=== PATIENT | female | born 1940 | race Caucasian/White ===

== ENCOUNTER 2018-08-22 15:27 | Inpatient (IN) | payer MEDICARE ==
[2018-08-22] MEDS ORDERED: Acetaminophen 325 MG TAB ONE (17:15)
[2018-08-22 18:35] VITALS: BMI 26.1
[2018-08-22] MEDS ORDERED: Acetaminophen 325 MG TAB PO PRN (19:05)
[2018-08-22] MEDS ORDERED: Ondansetron PF 4 MG/2 ML Vial IVP PRN (19:05)
[2018-08-22] MEDS ORDERED: Ondansetron ODT 4 MG TAB SL PRN (19:05)
[2018-08-23] MEDS ORDERED: Zolpidem Tartrate 5 MG TAB PO PRN (00:45)
[2018-08-23] MEDS ORDERED: HYDROcodone/Acetaminophen 5/325 mg Tablet PO PRN (00:45)
--- NOTE | 2018-08-23 01:13 | PDOC.EVN ---
Event Note - Event Note Event Note: H&P [id number]
[2018-08-23 07:32] LABS: #Eosinphils 0.1 thou/uL (0.0-0.7); #Lymphocytes 1.2 thou/uL (1.20-3.40); #Monocytes 0.5 thou/uL (0.11-0.59); #Neutrophils 3.1 thou/uL (1.40-6.50); %Basophils 0.1 % (0.0-1.0); %Eosinophils 2.9 % (0.0-10.0); %Lymphocytes 24.4 % (21.0-51.0); %Monocytes 10.3 % (0.0-10.0); %Neutrophils 62.2 % (42.0-75.0); Mean Corpuscular HGB CONC 34.3 g/dL (32.0-36.0); Mean Corpuscular Hemoglobin 31.8 pg (27.0-31.0); Mean Corpuscular Volume 92.8 fL (78.0-98.0); Mean Platelet Volume 7.8 fL (7.4-10.4); Platelet Count 190 thou/uL (130-400); RBC Distribution Width 11.9 % (11.5-14.5); Red Blood Cell (RBC) Count 4.73 mill/uL (4.20-5.40); White Blood Cell (WBC) Count 4.9 thou/uL (4.8-10.8)
[2018-08-23 07:39] LABS: PTT 29.4 SEC (22.9-36.1); Prothrombin Time 13.7 SEC (12.0-14.7)
[2018-08-23 07:54] LABS: Anion Gap 14 mmol/L (10-20); BUN (Urea Nitrogen) 11 mg/dL (9.8-20.1); Calc. Creatinine Clearance 60 mL/min (70-130); Calcium 9.7 mg/dL (7.8-10.44); Carbon Dioxide 24 mmol/L (23-31); Chloride 107 mmol/L (98-107); Estimated GFR-MDRD 72; Glucose 98 mg/dL (83-110); Potassium 3.8 mmol/L (3.5-5.1); Sodium 141 mmol/L (136-145)
[2018-08-23] MEDS: Aspirin 81 mg Enteric Coated Tablet PO SCH (09:13)
[2018-08-23] MEDS: Enoxaparin Sodium 40 MG/0.4 ML SYRINGE SC SCH (09:15)
[2018-08-23] MEDS: Acetaminophen 325 MG TAB PO PRN ×2 (10:09→21:02)
--- NOTE | 2018-08-23 11:18 | CON ---
DATE OF CONSULTATION: 08/23/2018 CONSULTING PHYSICIAN: Hospitalist Service. IMPRESSION: Probable right occipital infarct. PLAN: 1. Aspirin. 2. Lipitor. 3. Echocardiogram. 4. MRI of the brain. HISTORY OF PRESENT ILLNESS: Ms. English is a previously healthy 78-year-old woman, who came in with complaints of acute onset of distorted vision and headache. She initially tried to sleep for the symptoms, by the next morning when she got up, she found that she was staggering. She also noted some numbness in the left side of the body. She went to [facility]. She had a CT and CTA done. The reports are not available. She was transferred here for further evaluation. She denies any history of stroke symptoms in the past or cardiac disease. She has no other risk factors. PAST MEDICAL HISTORY: Otherwise, negative. ALLERGIES: KEFLEX, SULFA, AND CODEINE. SOCIAL HISTORY: No tobacco or alcohol use. FAMILY HISTORY: Noncontributory. MEDICATION LIST: None. REVIEW OF SYSTEMS: Ten system review of systems is otherwise negative. PHYSICAL EXAMINATION: GENERAL: She is a healthy-appearing elderly lady, in no acute distress. VITAL SIGNS: Blood pressure 178/111, pulse 80, respirations 16, and temperature 98.1. HEENT: Pupils are equal and reactive. Conjunctivae are clear. Oropharynx clear. NECK: Supple. No lymphadenopathy. EXTREMITIES: No cyanosis, clubbing, or edema. NEUROLOGIC: She is alert and appropriate. Her speech is fluent and clear. Cranial nerves are intact other than a dense left homonymous field cut. Motor exam showed good strength bilaterally. Sensation was subjectively decreased in the left arm and foot. No tremor. Dysmetria is present. Gait was not tested. Plantar responses were downgoing bilaterally. LABORATORY STUDIES: Unremarkable CBC, coags, and chemistry panel. EKG, normal sinus rhythm. SUMMARY: Elderly lady with probable undiagnosed hypertension and presents with visual field deficit and numbness consistent with posterior circulation stroke. I agree with your care and follow up on the results. Job ID: [id number]
--- NOTE | 2018-08-23 12:41 | MRI ---
MRI BRAIN: DATE: 08/23/2018. PROVIDED CLINICAL HISTORY: Blurred vision and left-sided weakness. FINDINGS: Correlation is made with the CT examination performed 08/22/2018. The ventricular system appears normal in size and morphology. There is no evidence for intracranial hemorrhage or mass effect. There is gyriform restricted diffusion present involving the distribution of the right posterior cerebral artery involving the right occipital region. There is a punctate fo cus of restricted diffusion seen involving the right thalamus. No additional diffusion restriction i s evident. Appropriate flow voids are seen within the major intracranial vessels with the exception of a diminis hed/absent flow voids involving the right posterior cerebral artery involving the P1 segment. The extracranial soft tissues and calvarial marrow signal appear normal. IMPRESSION: 1. Findings compatible with recent posterior cerebral artery distribution infarction on the right. 2. Lacunar infarction involving the right thalamus. POS: BHAVESH
--- NOTE | 2018-08-23 13:54 | PDOC.PN ---
- Subjective Encounter Start Date: 08/23/18 Encounter Start Time: 07:00 Pt seen for followup re: ischemic CVA. Denies chest pain, shortness of breath, fevers or chills. - Objective Vital Signs & Weight: Vital Signs (12 hours) Temp Pulse Resp BP BP Pulse Ox 08/23/18 11:53 98.1 F 86 16 183/96 H 96 08/23/18 09:17 86 158/88 H 08/23/18 07:48 98.1 F 81 16 178/111 H 97 08/23/18 04:00 98.2 F 77 16 130/93 H 98 Weight Weight 138 lb 6 oz I&O: 08/22/18 08/23/18 08/24/18 06:59 06:59 06:59 Intake Total 150 Balance 150 Result Diagrams: 08/23/18 07:23 08/23/18 07:23 Phys Exam - Physical Examination Constitutional: NAD HEENT: moist MMs, sclera anicteric, oral pharynx no lesions, 2+ tonsils Neck: no nodes, no JVD, supple, full ROM Respiratory: clear to auscultation bilateral Cardiovascular: RRR, no rub S1, S2 Gastrointestinal: soft, non-tender, no distention, positive bowel sounds Neurological: moves all 4 limbs L dense hemianopsia Psychiatric: normal affect, A&O x 3 Dx/Plan (1) Ischemic cerebrovascular accident (CVA) Code(s): I63.9 - CEREBRAL INFARCTION, UNSPECIFIED Status: Acute Comment: continue aspirin, statin (2) Hemianopia, homonymous, left Code(s): H53.462 - HOMONYMOUS BILATERAL FIELD DEFECTS, LEFT SIDE Status: Acute Comment: await MRI (3) Carotid artery aneurysm Code(s): I72.0 - ANEURYSM OF CAROTID ARTERY Status: Acute Comment: consult CV surgery (4) HTN (hypertension) Code(s): I10 - ESSENTIAL (PRIMARY) HYPERTENSION Status: Chronic - Plan * . Review of Systems - Review of Systems Constitutional: negative: fever, chills, sweats, weakness, malaise Eyes: Vision Change Respiratory: negative: Cough, Shortness of Breath, SOB with Excertion, Pleuritic Pain, Wheezing Cardiovascular: negative: chest pain, palpitations, orthopnea, paroxysmal nocturnal dyspnea, edema, light headedness Gastrointestinal: negative: Nausea, Vomiting, Abdominal Pain, Diarrhea, Constipation, Melena, Hematochezia Genitourinary: negative: Dysuria, Frequency, Incontinence, Hematuria, Retention Neurological: Numbness (Vision change), Other - Medications/Allergies Allergies/Adverse Reactions: Allergies Allergy/AdvReac Type Severity Reaction Status Date / Time cephalexin [From Keflex] Allergy Verified 08/22/18 20:25 Sulfa (Sulfonamide Allergy Verified 08/22/18 20:25 Antibiotics) codeine AdvReac Verified 08/22/18 20:25 Medications: Current Medications Acetaminophen (Tylenol) 650 mg PO Q6H PRN PRN Reason: Moderate to Severe Pain (6-10) Last Admin: 08/23/18 10:09 Dose: 650 mg Hydrocodone Bitart/Acetaminophen ([place] 5/325) 1 tab PO Q4H PRN PRN Reason: Moderate Pain (4-6) Aspirin (Ecotrin) 81 mg PO DAILY [facility] Last Admin: 08/23/18 09:13 Dose: 81 mg Atorvastatin Calcium (Lipitor) 40 mg PO HS [facility] Enoxaparin Sodium (Lovenox) 40 mg SC 0900 [facility] Last Admin: 08/23/18 09:15 Dose: 40 mg Zolpidem Tartrate (Ambien) 5 mg PO HSPRN PRN PRN Reason: Insomnia
[2018-08-23] MEDS: Atorvastatin Calcium 40 MG TAB PO SCH (20:08)
[2018-08-24 06:43] LABS: Cardiac Risk 4.1 (Less than 4.5)
[2018-08-24] MEDS: Aspirin 81 mg Enteric Coated Tablet PO SCH (08:53)
[2018-08-24] MEDS: Enoxaparin Sodium 40 MG/0.4 ML SYRINGE SC SCH (08:56)
--- NOTE | 2018-08-24 14:06 | PDOC.PN ---
- Subjective Encounter Start Date: 08/24/18 Encounter Start Time: 07:00 Pt seen for followup re: ischemic CVA. Says she feels better. - Objective MAR Reviewed: Yes Vital Signs & Weight: Vital Signs (12 hours) Temp Pulse Resp BP Pulse Ox 08/24/18 11:52 98.6 F 96 16 147/91 H 100 08/24/18 08:56 99 08/24/18 07:41 98.2 F 80 16 146/86 H 99 08/24/18 04:57 96 08/24/18 03:02 98.4 F 82 20 142/89 H 96 Weight Weight 138 lb 1.6 oz I&O: 08/23/18 08/24/18 08/25/18 06:59 06:59 06:59 Intake Total 150 950 Balance 150 950 Result Diagrams: 08/23/18 07:23 08/23/18 07:23 EKG Reviewed by me: Yes (Tele: NSR) Phys Exam - Physical Examination Constitutional: NAD HEENT: moist MMs Neck: supple Respiratory: clear to auscultation bilateral Cardiovascular: RRR Gastrointestinal: soft Neurological: moves all 4 limbs Psychiatric: normal affect Dx/Plan (1) Ischemic cerebrovascular accident (CVA) Code(s): I63.9 - CEREBRAL INFARCTION, UNSPECIFIED Status: Acute Comment: continue aspirin, statin; Inpatient Rehab vs SNU (2) Hemianopia, homonymous, left Code(s): H53.462 - HOMONYMOUS BILATERAL FIELD DEFECTS, LEFT SIDE Status: Acute Comment: ischemic CVA on MRI (3) Carotid artery aneurysm Code(s): I72.0 - ANEURYSM OF CAROTID ARTERY Status: Acute Comment: CV surgery consulted (4) HTN (hypertension) Code(s): I10 - ESSENTIAL (PRIMARY) HYPERTENSION Status: Chronic - Plan plan discussed w/ family, PT/OT, out of bed/ambulate * . Review of Systems - Review of Systems Eyes: Vision Change Respiratory: negative: Cough, Shortness of Breath, SOB with Excertion, Pleuritic Pain, Wheezing Cardiovascular: negative: chest pain, palpitations, orthopnea, paroxysmal nocturnal dyspnea, edema, light headedness Neurological: Numbness (vision change), Other - Medications/Allergies Allergies/Adverse Reactions: Allergies Allergy/AdvReac Type Severity Reaction Status Date / Time cephalexin [From Keflex] Allergy Verified 08/22/18 20:25 Sulfa (Sulfonamide Allergy Verified 08/22/18 20:25 Antibiotics) codeine AdvReac Verified 08/22/18 20:25 Medications: Current Medications Acetaminophen (Tylenol) 650 mg PO Q6H PRN PRN Reason: Moderate to Severe Pain (6-10) Last Admin: 08/23/18 21:02 Dose: 650 mg Hydrocodone Bitart/Acetaminophen ([place] 5/325) 1 tab PO Q4H PRN PRN Reason: Moderate Pain (4-6) Aspirin (Ecotrin) 81 mg PO DAILY [facility] Last Admin: 08/24/18 08:53 Dose: 81 mg Atorvastatin Calcium (Lipitor) 40 mg PO HS [facility] Last Admin: 08/23/18 20:08 Dose: 40 mg Enoxaparin Sodium (Lovenox) 40 mg SC 0900 [facility] Last Admin: 08/24/18 08:56 Dose: 40 mg Zolpidem Tartrate (Ambien) 5 mg PO HSPRN PRN PRN Reason: Insomnia
--- NOTE | 2018-08-24 14:28 | CON ---
DATE OF CONSULTATION: HISTORY OF PRESENT ILLNESS: Ms. English is a 78-year-old woman, who was admitted with a stroke. She was apparently seen in [place] and had a radiologic workup, which is unavailable. We will have to redo her films to characterize what has been described as a carotid artery aneurysm. She has been seen by Dr. Perez. She has no previous history of any stroke symptoms or prior cardiovascular disease. PAST MEDICAL HISTORY: Dyslipidemia. PAST SURGICAL HISTORY: None. ALLERGIES: KEFLEX, SULFA, AND CODEINE. MEDICATIONS: Prior to admission, none. SOCIAL HISTORY: She has not used tobacco. PHYSICAL EXAMINATION: GENERAL: This is a well-developed, well-nourished woman, resting comfortably in bed. VITAL SIGNS: Her height is 5 feet 1 inch, weight is 138 pounds, BSA is 1.64, temperature 98.2, pulse is 80 and regular, blood pressure 146/86. NECK: Supple without bruit. CHEST: Clear bilaterally. HEART: Rhythm is regular. ABDOMEN: Soft and nontender. NEUROLOGIC: Motor exam is equal bilaterally. She has a left homonymous hemianopia. ASSESSMENT AND PLAN: Cerebrovascular accident. She has had a MRI of her brain performed, which has shown a posterior territory infarct on the right. She also has a lacunar infarction involving the thalamus on the right. She needs a CT angiogram of the neck to evaluate her extracranial carotid circulation. She has had an echocardiogram performed, which showed significant valvular disease. She has no ASD or PFO. Her EF is 60%. I will follow up on her CT angio. Job ID: [id number]
[2018-08-24] MEDS: Acetaminophen 325 MG TAB PO PRN (15:57)
[2018-08-24] MEDS: Atorvastatin Calcium 40 MG TAB PO SCH (20:25)
--- NOTE | 2018-08-25 07:37 | HP ---
CHIEF COMPLAINT: Left eye blindness. HISTORY OF PRESENT ILLNESS: This is a 78-year-old female with unknown past medical history as this is the first time she has encountered a physician in the outside ER. The patient apparently last night was having left visual disturbances. The left eye vision went blurry and then she became blind in the left eye. The patient went to an outside ER and had a CT scan done at the facility, which showed an extracranial carotid aneurysm as well as CVA to the visual cortex. The patient was given aspirin at the other hospital with cholesterol medications as well. Not a candidate for tPA as the onset was greater than 8 hours and the patient presented to the ER here. The patient currently at point in time of evaluation, states that she has also developed left arm numbness and left leg numbness. The patient has never had these symptoms before. Denies any alleviating or aggravating factors. Denies any other associated complaints or symptoms. The patient seen and examined in the room. Family at bedside. All questions were answered. ALLERGIES: TO KEFLEX. SHE IS NOT SURE WHAT HAPPENS WHEN SHE GETS KEFLEX. PAST MEDICAL HISTORY: Unknown. SOCIAL HISTORY: Nondrinker, nonsmoker. HOME MEDICATIONS: None. FAMILY HISTORY: The patient is unaware of any. REVIEW OF SYSTEMS: All systems reviewed, pertinent positive in HPI, otherwise negative. PHYSICAL EXAMINATION: VITAL SIGNS: Blood pressure 141/86, temperature of 98, pulse of 81, respirations of 16 with saturations of 97% on room air. GENERAL: The patient is lying in bed comfortably. No acute distress. HEENT: PERRLA. Extraocular muscles intact. Left vision not intact. The patient unable to see, blurry, not tracking very well either on the left eye. NECK: Supple, mobile, nontender thyroid appreciated. PULMONARY: Regular respiratory rate. No cyanosis, clubbing, or edema noted. CARDIOVASCULAR: Regular rate and rhythm. S1, S2. No murmurs, rubs, or gallops appreciated. ABDOMEN: Positive bowel sounds. Soft, nontender, and nondistended. EXTREMITIES: 2+ peripheral pulses. No cyanosis, clubbing, or edema. NEUROLOGIC: Cranial nerves 2 through 12 intact except for left optic nerve. Left upper extremity, shoulder abduction and abduction 3/5, elbow flexion 3/5. Left lower extremity hip flexion 4/5. LABORATORY DATA: CBC reviewed. BMP reviewed. ASSESSMENT: 1. Likely a posterior cerebrovascular accident. 2. Hypertension. 3. Left-sided weakness. PLAN: At this point in time, we will admit the patient to Internal Medicine Team given CT findings. We will consult Neurosurgery, likely not a surgical candidate. However, given that we have basic local neurosurgeons available to get an evaluation. We will also consult Neurology, we were likely to do something in this situation. Consult to Physical Therapy as well as starting the patient on aspirin, atorvastatin, and Lovenox for DVT prophylaxis. The patient wishes to remain a full code. Case and plan discussed with the patient and daughter at length. They understand and agreed with this plan. Depending on MRI results, the patient may need to be switched to inpatient status, was admitted under observation at point in time of admission. Job ID: [id number]
--- NOTE | 2018-08-25 08:45 | CON ---
DATE OF CONSULTATION: 08/24/2018 ADDENDUM: I had the opportunity to review the CT angiogram performed in [place]. There is no obstructive carotid artery disease. She has no aneurysm of the carotid artery. She has a very tortuous internal carotid artery system making 3 hairpin turns bilaterally prior to entering the base of the skull. There is no surgical intervention needed. Job ID: [id number]
[2018-08-25] MEDS: Enoxaparin Sodium 40 MG/0.4 ML SYRINGE SC SCH (08:48)
[2018-08-25] MEDS: Aspirin 81 mg Enteric Coated Tablet PO SCH (08:48)
--- NOTE | 2018-08-25 14:12 | PDOC.PN ---
- Subjective Encounter Start Date: 08/25/18 Encounter Start Time: 07:20 Pt seen for followup re: CVA. Feels well, no new complaints. - Objective MAR Reviewed: Yes Vital Signs & Weight: Vital Signs (12 hours) Temp Pulse Pulse Pulse Resp BP BP 08/25/18 12:00 98.2 F 87 18 08/25/18 09:05 79 87 145/84 H 120/91 H 08/25/18 07:55 08/25/18 07:51 98.0 F 86 16 08/25/18 04:24 97.8 F 79 16 BP Pulse Ox 08/25/18 12:00 131/100 H 98 08/25/18 09:05 08/25/18 07:55 100 08/25/18 07:51 133/81 100 08/25/18 04:24 139/85 99 Weight Weight 138 lb 1.6 oz I&O: 08/24/18 08/25/18 08/26/18 06:59 06:59 06:59 Intake Total 950 750 Balance 950 750 Result Diagrams: 08/23/18 07:23 08/23/18 07:23 EKG Reviewed by me: Yes (Tele: NSR) Phys Exam - Physical Examination Constitutional: NAD HEENT: moist MMs Neck: supple Respiratory: clear to auscultation bilateral Cardiovascular: RRR Gastrointestinal: soft Neurological: moves all 4 limbs L homonymous hemianopsia Psychiatric: normal affect Dx/Plan (1) Ischemic cerebrovascular accident (CVA) Code(s): I63.9 - CEREBRAL INFARCTION, UNSPECIFIED Status: Acute Comment: will continue aspirin, statin; Discharge planning in progress re: Inpatient Rehab vs SNU (2) Hemianopia, homonymous, left Code(s): H53.462 - HOMONYMOUS BILATERAL FIELD DEFECTS, LEFT SIDE Status: Acute Comment: secondary to ischemic CVA (3) HTN (hypertension) Code(s): I10 - ESSENTIAL (PRIMARY) HYPERTENSION Status: Chronic Comment: monitor vital signs, titrate antihypertensives as needed (4) Carotid artery aneurysm Code(s): I72.0 - ANEURYSM OF CAROTID ARTERY Status: Resolved Comment: appreciate CV surgery input - Plan * . Review of Systems - Review of Systems Respiratory: negative: Cough, Shortness of Breath, SOB with Excertion, Pleuritic Pain, Wheezing Cardiovascular: negative: chest pain, palpitations, orthopnea, paroxysmal nocturnal dyspnea, edema, light headedness - Medications/Allergies Allergies/Adverse Reactions: Allergies Allergy/AdvReac Type Severity Reaction Status Date / Time cephalexin [From Keflex] Allergy Verified 08/22/18 20:25 Sulfa (Sulfonamide Allergy Verified 08/22/18 20:25 Antibiotics) codeine AdvReac Verified 08/22/18 20:25 Medications: Current Medications Acetaminophen (Tylenol) 650 mg PO Q6H PRN PRN Reason: Moderate to Severe Pain (6-10) Last Admin: 08/24/18 15:57 Dose: 650 mg Hydrocodone Bitart/Acetaminophen ([place] 5/325) 1 tab PO Q4H PRN PRN Reason: Moderate Pain (4-6) Aspirin (Ecotrin) 81 mg PO DAILY [facility] Last Admin: 08/25/18 08:48 Dose: 81 mg Atorvastatin Calcium (Lipitor) 40 mg PO HS [facility] Last Admin: 08/24/18 20:25 Dose: 40 mg Enoxaparin Sodium (Lovenox) 40 mg SC 0900 [facility] Last Admin: 08/25/18 08:48 Dose: 40 mg Zolpidem Tartrate (Ambien) 5 mg PO HSPRN PRN PRN Reason: Insomnia
[2018-08-25] MEDS: Atorvastatin Calcium 40 MG TAB PO SCH (21:21)
[2018-08-26] MEDS: Enoxaparin Sodium 40 MG/0.4 ML SYRINGE SC SCH (08:31)
[2018-08-26] MEDS: Aspirin 81 mg Enteric Coated Tablet PO SCH (08:31)
--- NOTE | 2018-08-26 13:48 | PDOC.PN ---
- Subjective Encounter Start Date: 08/26/18 Encounter Start Time: 07:00 Pt seen for followup re: ischemic CVA. Says she feels okay, no new complaints. - Objective MAR Reviewed: Yes Vital Signs & Weight: Vital Signs (12 hours) Temp Pulse Pulse Pulse Resp BP BP 08/26/18 12:00 98.3 F 83 16 08/26/18 10:34 84 88 155/93 H 147/91 H 08/26/18 10:12 78 84 150/96 H 159/93 H 08/26/18 08:15 08/26/18 07:56 98.3 F 82 16 08/26/18 04:00 97.6 F 82 16 BP Pulse Ox 08/26/18 12:00 137/84 98 08/26/18 10:34 08/26/18 10:12 08/26/18 08:15 96 08/26/18 07:56 120/81 96 08/26/18 04:00 109/80 96 Weight Weight 138 lb 1.6 oz I&O: 08/25/18 08/26/18 08/27/18 06:59 06:59 06:59 Intake Total 750 990 Balance 750 990 Result Diagrams: 08/23/18 07:23 08/23/18 07:23 EKG Reviewed by me: Yes (Tele: NSR) Phys Exam - Physical Examination Constitutional: NAD HEENT: moist MMs Neck: no nodes Respiratory: no wheezing Cardiovascular: RRR Gastrointestinal: soft Neurological: moves all 4 limbs L homonymous hemianopsia Psychiatric: normal affect Dx/Plan (1) Ischemic cerebrovascular accident (CVA) Code(s): I63.9 - CEREBRAL INFARCTION, UNSPECIFIED Status: Acute Comment: Discharge planning in progress re: Inpatient Rehab vs SNU (2) Hemianopia, homonymous, left Code(s): H53.462 - HOMONYMOUS BILATERAL FIELD DEFECTS, LEFT SIDE Status: Acute Comment: secondary to ischemic CVA; therapy services following (3) HTN (hypertension) Code(s): I10 - ESSENTIAL (PRIMARY) HYPERTENSION Status: Chronic Comment: Improved (4) Carotid artery aneurysm Code(s): I72.0 - ANEURYSM OF CAROTID ARTERY Status: Resolved - Plan * . Review of Systems - Review of Systems Eyes: Vision Change Cardiovascular: negative: chest pain, palpitations, orthopnea, paroxysmal nocturnal dyspnea, edema, light headedness Gastrointestinal: negative: Nausea, Vomiting, Abdominal Pain, Diarrhea, Constipation, Melena, Hematochezia Neurological: Numbness - Medications/Allergies Allergies/Adverse Reactions: Allergies Allergy/AdvReac Type Severity Reaction Status Date / Time cephalexin [From Keflex] Allergy Verified 08/22/18 20:25 Sulfa (Sulfonamide Allergy Verified 08/22/18 20:25 Antibiotics) codeine AdvReac Verified 08/22/18 20:25 Medications: Current Medications Acetaminophen (Tylenol) 650 mg PO Q6H PRN PRN Reason: Moderate to Severe Pain (6-10) Last Admin: 08/24/18 15:57 Dose: 650 mg Aspirin (Ecotrin) 81 mg PO DAILY [facility] Last Admin: 08/26/18 08:31 Dose: 81 mg Atorvastatin Calcium (Lipitor) 40 mg PO HS [facility] Last Admin: 08/25/18 21:21 Dose: 40 mg Enoxaparin Sodium (Lovenox) 40 mg SC 0900 [facility] Last Admin: 08/26/18 08:31 Dose: 40 mg Zolpidem Tartrate (Ambien) 5 mg PO HSPRN PRN PRN Reason: Insomnia
[2018-08-26] MEDS: Atorvastatin Calcium 40 MG TAB PO SCH (21:26)
[2018-08-27] MEDS: Aspirin 81 mg Enteric Coated Tablet PO SCH (10:24)
[2018-08-27] MEDS: Enoxaparin Sodium 40 MG/0.4 ML SYRINGE SC SCH (10:24)
--- NOTE | 2018-08-27 18:33 | PDOC.PN ---
- Subjective Encounter Start Date: 08/27/18 Encounter Start Time: 07:00 Pt seen for followup re: ischemic CVA. Feels better, no complaints. - Objective MAR Reviewed: Yes Vital Signs & Weight: Vital Signs (12 hours) Temp Pulse Pulse Pulse Resp BP BP 08/27/18 15:41 98.3 F 91 18 08/27/18 11:43 98.5 F 81 18 08/27/18 10:30 08/27/18 09:46 94 91 148/77 H 141/89 H 08/27/18 07:50 98.2 F 85 18 BP Pulse Ox 08/27/18 15:41 138/82 96 08/27/18 11:43 139/72 98 08/27/18 10:30 97 08/27/18 09:46 08/27/18 07:50 125/83 97 Weight Weight 138 lb 1.6 oz I&O: 08/26/18 08/27/18 08/28/18 06:59 06:59 06:59 Intake Total 122 101 0290 Balance 743 219 5245 Result Diagrams: 08/23/18 07:23 08/23/18 07:23 EKG Reviewed by me: Yes (Tele: NSR) Phys Exam - Physical Examination Constitutional: NAD HEENT: moist MMs Neck: supple Respiratory: clear to auscultation bilateral Cardiovascular: RRR Gastrointestinal: soft L homonymous hemianopsia Psychiatric: normal affect Dx/Plan (1) Ischemic cerebrovascular accident (CVA) Code(s): I63.9 - CEREBRAL INFARCTION, UNSPECIFIED Status: Acute Comment: Inpatient Rehab vs SNU (2) Hemianopia, homonymous, left Code(s): H53.462 - HOMONYMOUS BILATERAL FIELD DEFECTS, LEFT SIDE Status: Acute Comment: therapy services following (3) HTN (hypertension) Code(s): I10 - ESSENTIAL (PRIMARY) HYPERTENSION Status: Chronic Comment: controlled (4) Carotid artery aneurysm Code(s): I72.0 - ANEURYSM OF CAROTID ARTERY Status: Resolved - Plan * . Review of Systems - Review of Systems Respiratory: negative: Cough, Shortness of Breath, SOB with Excertion, Pleuritic Pain, Wheezing Cardiovascular: negative: chest pain, palpitations, orthopnea, paroxysmal nocturnal dyspnea, edema, light headedness - Medications/Allergies Allergies/Adverse Reactions: Allergies Allergy/AdvReac Type Severity Reaction Status Date / Time cephalexin [From Keflex] Allergy Verified 08/22/18 20:25 Sulfa (Sulfonamide Allergy Verified 08/22/18 20:25 Antibiotics) codeine AdvReac Verified 08/22/18 20:25 Medications: Current Medications Acetaminophen (Tylenol) 650 mg PO Q6H PRN PRN Reason: Moderate to Severe Pain (6-10) Last Admin: 08/24/18 15:57 Dose: 650 mg Aspirin (Ecotrin) 81 mg PO DAILY [facility] Last Admin: 08/27/18 10:24 Dose: 81 mg Atorvastatin Calcium (Lipitor) 40 mg PO HS [facility] Last Admin: 08/26/18 21:26 Dose: 40 mg Enoxaparin Sodium (Lovenox) 40 mg SC 0900 [facility] Last Admin: 08/27/18 10:24 Dose: 40 mg Zolpidem Tartrate (Ambien) 5 mg PO HSPRN PRN PRN Reason: Insomnia
[2018-08-27] MEDS: Atorvastatin Calcium 40 MG TAB PO SCH (20:59)
[2018-08-28] MEDS: Aspirin 81 mg Enteric Coated Tablet PO SCH (10:02)
[2018-08-28] MEDS: Enoxaparin Sodium 40 MG/0.4 ML SYRINGE SC SCH (10:02)
--- NOTE | 2018-08-28 15:05 | PDOC.PN ---
- Subjective Encounter Start Date: 08/28/18 Encounter Start Time: 07:20 Pt seen for followup re: ischemic CVA. Still has vision problems. - Objective MAR Reviewed: Yes Vital Signs & Weight: Vital Signs (12 hours) Temp Pulse Pulse Pulse Resp BP BP 08/28/18 11:30 98.5 F 85 16 08/28/18 10:13 82 89 156/92 H 148/85 H 08/28/18 10:00 08/28/18 07:46 97.5 F L 74 16 08/28/18 04:00 98.2 F 75 16 BP Pulse Ox 08/28/18 11:30 126/80 96 08/28/18 10:13 08/28/18 10:00 96 08/28/18 07:46 130/79 98 08/28/18 04:00 124/76 98 Weight Weight 138 lb 1.6 oz I&O: 08/27/18 08/28/18 08/29/18 06:59 06:59 06:59 Intake Total 800 1620 320 Balance 800 1620 320 Result Diagrams: 08/23/18 07:23 08/23/18 07:23 EKG Reviewed by me: Yes (Tele: NSR) Phys Exam - Physical Examination HEENT: moist MMs Neck: supple Respiratory: clear to auscultation bilateral Cardiovascular: RRR Gastrointestinal: soft Neurological: moves all 4 limbs Psychiatric: normal affect Dx/Plan (1) Ischemic cerebrovascular accident (CVA) Code(s): I63.9 - CEREBRAL INFARCTION, UNSPECIFIED Status: Acute Comment: Awaiting decision re:Inpatient Rehab vs SNU (2) Hemianopia, homonymous, left Code(s): H53.462 - HOMONYMOUS BILATERAL FIELD DEFECTS, LEFT SIDE Status: Acute Comment: will likely need rehab (3) HTN (hypertension) Code(s): I10 - ESSENTIAL (PRIMARY) HYPERTENSION Status: Chronic Comment: BP high, start amlodipine (4) Carotid artery aneurysm Code(s): I72.0 - ANEURYSM OF CAROTID ARTERY Status: Resolved - Plan plan discussed w/ family, PT/OT * . Review of Systems - Review of Systems Eyes: Vision Change Cardiovascular: negative: chest pain, palpitations, orthopnea, paroxysmal nocturnal dyspnea, edema, light headedness Neurological: Numbness - Medications/Allergies Allergies/Adverse Reactions: Allergies Allergy/AdvReac Type Severity Reaction Status Date / Time cephalexin [From Keflex] Allergy Verified 08/22/18 20:25 Sulfa (Sulfonamide Allergy Verified 08/22/18 20:25 Antibiotics) codeine AdvReac Verified 08/22/18 20:25 Medications: Current Medications Acetaminophen (Tylenol) 650 mg PO Q6H PRN PRN Reason: Moderate to Severe Pain (6-10) Last Admin: 08/24/18 15:57 Dose: 650 mg Aspirin (Ecotrin) 81 mg PO DAILY [facility] Last Admin: 08/28/18 10:02 Dose: 81 mg Atorvastatin Calcium (Lipitor) 40 mg PO HS [facility] Last Admin: 08/27/18 20:59 Dose: 40 mg Enoxaparin Sodium (Lovenox) 40 mg SC 0900 [facility] Last Admin: 08/28/18 10:02 Dose: 40 mg Zolpidem Tartrate (Ambien) 5 mg PO HSPRN PRN PRN Reason: Insomnia
[2018-08-28 16:01] VITALS: BP 145/87; TEMP 98.1
--- NOTE | 2018-08-28 16:51 | DIS ---
DATE OF ADMISSION: 08/23/2018 DATE OF DISCHARGE: 08/28/2018 PRIMARY CARE PROVIDER: None. DISCHARGE DIAGNOSES: 1. Ischemic cerebrovascular accident. 2. Left homonymous hemianopia. 3. Hypertension. CONSULTATIONS DURING THIS HOSPITALIZATION: 1. Neurology, Deangelo Perez MD. 2. Cardiovascular Surgery, Piotr Harrison MD. CONDITION OF PATIENT ON THE DAY OF DISCHARGE: Stable. I assessed Ms. English on the day of discharge. Please refer to my daily hospitalist progress note for details regarding this [id number] encounter. DISCHARGE MEDICATIONS: 1. Aspirin 81 mg daily. 2. Atorvastatin 40 mg at bedtime. 3. Amlodipine 2.5 mg daily. HOSPITAL COURSE: Ms. Enlgish is a pleasant 78-year-old lady, who was admitted to [facility] on August 23, 2018, for ischemic cerebrovascular accident and hypertension. There was also concern regarding aneurysm of the internal carotid artery. Cardiovascular Surgery was consulted regarding the suspected aneurysm of the carotid artery. After reviewing the CT angiogram performed in [place], opinion was that there was no obstructive carotid artery disease and no aneurysm of the carotid artery. There was no surgical intervention needed. In terms of the stroke, MRI of the brain on August 23 showed findings compatible with recent posterior cerebral artery distribution infarction on the right. She also had lacunar infarction involving the right thalamus. 2D echocardiogram did not show any intracardiac masses or vegetations. There was no ASD or PFO. Left ventricular ejection fraction was 55% to 60%. She had E/A flow reversal suggestive of diastolic dysfunction. She was seen by [facility]. She has been accepted for inpatient rehab at [facility]. During this hospitalization, fasting lipid profile showed triglycerides 151, cholesterol 250, LDL cholesterol 159. HDL cholesterol was 61. Many thanks for allowing me to participate in Ms. English's care. Please feel free to contact me with any questions or concerns. DISCHARGE DESTINATION: [facility]. TIME SPENT: Total amount of time spent coordinating this discharge: 33 minutes. Job ID: [id number]
[2018-08-29] MEDS ORDERED: Amlodipine 5 MG TAB PO SCH (09:00)
== END 2018-08-28 19:30 | DRG 65 ==
LOC: ERS 15:27 → 2SE 18:28 → OBSVTOIN 08-23 15:23
PROVIDERS: ADMIT Internal Medicine; ATTEND Internal Medicine
DX: I63.531 Cerebral infarction due to unspecified occlusion or stenosis of right posterior cerebral artery (principal); G81.94 Hemiplegia, unspecified affecting left nondominant side; I10 Essential (primary) hypertension; H53.462 Homonymous bilateral field defects, left side; E78.5 Hyperlipidemia, unspecified; I72.0 Aneurysm of carotid artery; Z88.8 Allergy status to other drugs, medicaments and biological substances; Z88.5 Allergy status to narcotic agent; Z88.2 Allergy status to sulfonamides; R40.2364 Coma scale, best motor response, obeys commands, 24 hours or more after hospital admission; R40.2144 Coma scale, eyes open, spontaneous, 24 hours or more after hospital admission; R40.2254 Coma scale, best verbal response, oriented, 24 hours or more after hospital admission
CPT/HCPCS: 36415; 70551; 80048; 80061; 85025; 85610; 85730; 93306; 94760; J1650